=== PATIENT | female | born 2000 | race Hispanic/Latino ===

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

== ENCOUNTER 2021-04-10 19:24 | Emergency (ER) | payer OTHER ==
[~2021-04-10] VITALS: Ht 167.6 cm; Wt 135.6 kg
[~2021-04-10 19:24] MED LIST changes: +IBUPROFEN600 MG PO
[2021-04-10] MEDS ORDERED: PRENATA3 PO (19:37)
[2021-04-10 20:07] VITALS: BP 125/75
== END 2021-04-10 20:09 | disposition home or self-care (01) ==
LOC: ED 19:24
DX: O99.512 Diseases of the respiratory system complicating pregnancy, second trimester (principal); J06.9 Acute upper respiratory infection, unspecified; J02.9 Acute pharyngitis, unspecified; Z3A.00 Weeks of gestation of pregnancy not specified

== ENCOUNTER 2023-10-14 06:48 | Emergency (ER) | payer OTHER ==
[~2023-10-14] VITALS: Ht 167.6 cm; Wt 140.6 kg
[2023-10-14] VITALS (12 sets, daily range): BP systolic 105–140; BP diastolic 65–78
[~2023-10-14 06:48] MED LIST changes: +AMOXICILLIN500 MG PO; +PRENATA3 PO
[2023-10-14] MEDS ORDERED: TAM75CAP PO (09:10)
[2023-10-14] MEDS ORDERED: ZITHROMAX250 MG PO (09:10)
== END 2023-10-14 09:25 | disposition home or self-care (01) ==
LOC: ED 06:48
DX: J10.1 Influenza due to other identified influenza virus with other respiratory manifestations (principal); Z20.822 Contact with and (suspected) exposure to COVID-19

== ENCOUNTER 2023-11-21 08:49 | Emergency (ER) | payer OTHER ==
[~2023-11-21] VITALS: Ht 167.6 cm; Wt 141.0 kg
[2023-11-21] VITALS (8 sets, daily range): BP systolic 85–130; BP diastolic 41–79
[~2023-11-21 08:49] MED LIST changes: +TAM75CAP PO; +ZITHROMAX250 MG PO
[2023-11-21 09:38] LABS: URINE BILIRUBIN - DIPSTICK Negative (NEGATIVE); URINE BLOOD DIPSTICK Negative (NEGATIVE); URINE GLUCOSE - DIPSTICK Negative (NEGATIVE); URINE KETONE Negative (NEGATIVE); URINE LEUK ESTERASE Trace (NEGATIVE); URINE NITRITE - DIPSTICK Negative (Negative); URINE PROTEIN - DIPSTICK Negative (NEG-TRACE); URINE UROBILINOGEN - DIPSTICK 0.2 E.U./dL (0.2)
[2023-11-21 09:42] LABS: URINE COLOR Yellow
[2023-11-21] MEDS ORDERED: NABUMETONE750 MG PO (11:02)
[2023-11-21] MEDS ORDERED: CYCLOBENZAPRINE10 MG PO (11:02)
[2023-11-21] MEDS ORDERED: MEDDOSEPAK PO (11:02)
== END 2023-11-21 11:17 | disposition home or self-care (01) ==
LOC: ED 08:49
PROVIDERS: Emergency Medicine
DX: M54.50 Low back pain, unspecified (principal); Z87.442 Personal history of urinary calculi

== ENCOUNTER 2025-01-19 16:41 | Emergency (ER) | payer SELFPAY ==
[~2025-01-19] VITALS: Ht 167.6 cm; Wt 154.2 kg
[~2025-01-19 16:41] MED LIST changes: +CYCLOBENZAPRINE10 MG PO; +MEDDOSEPAK PO; +NABUMETONE750 MG PO
[2025-01-19 16:52] VITALS: BP 131/90
[2025-01-19] MEDS ORDERED: IBUPROFEN 600 MG/TAB PO ONE (16:55)
[2025-01-19] MEDS ORDERED: ACETAMINOPHEN 500 MG TAB PO ONE (16:55)
[2025-01-19 17:00] VITALS: BP 134/89
[2025-01-19 17:30] VITALS: BP 140/86
[2025-01-19 18:00] VITALS: BP 134/88
[2025-01-19 18:21] VITALS: BP 134/88
== END 2025-01-19 18:24 | disposition home or self-care (01) | DRG 153 ==
LOC: ED 16:41
DX: J06.9 Acute upper respiratory infection, unspecified (principal); E66.01 Morbid (severe) obesity due to excess calories; Z20.822 Contact with and (suspected) exposure to COVID-19